=== PATIENT | male | born 1960 ===

== ENCOUNTER → 2019-09-27 13:45 | Outpatient (REF) | payer MEDICAID, SELFPAY | LOC: OLS.ACW200 13:45 | PROVIDERS: Visit Provider Family Medicine | DX: J96.01 Acute respiratory failure with hypoxia (principal); I25.10 Atherosclerotic heart disease of native coronary artery without angina pectoris; I50.22 Chronic systolic (congestive) heart failure; I25.5 Ischemic cardiomyopathy | CPT/HCPCS: 87635; U0003 ==